=== PATIENT | male | born 1970 | race Caucasian/White ===

== ENCOUNTER → 2017-06-30 | Outpatient (CLI) | payer MEDICARE, OTHER ==
[~2017-06-30] MED LIST: ALLOPURINOL 10100 M1 PO; AMITRIPTYLINE H25 M2 PO; AMOXICILLIN 50500 MG PO; AUGMENTIN 875-1 EACH PO; CIALIS5 MG PO; CYMBALTA60 MG PO; DILAUDID 2 MG TA2 MG PO; DOCUSATE SODIU100 MG PO; FOLIC ACID0.8 MG PO; GLUCOPHAGE500 MG PO; GLUCOTROL5 MG PO; INDOMETHACIN 5050 M1; INVOKANA100 MG PO; JANUMET 50-1,01 EACH PO; LIDODERM1 EACH TRANSDERM; LYRICA 75 MG CA75 MG; MACRODANTIN100 MG PO; METFORMIN HCL500 MG PO; NEURONTIN 300300 M1 PO; NEURONTIN600 MG PO; NEXIUM 40 MG CA40 M1 PO; NEXIUM40 MG PO; PLAVIX 75 MG TA75 M1 PO; PRILOSEC 20 MG20 MG PO; VITAMIN B-1100 M1 PO; VITAMIN D1000 UNI1 PO; VITAMIN D3400 UNIT PO; VITAMIN D400 UNIT PO; XANAX 0.25 MG0.25 MG PO; XANAX 0.5 MG0.5 MG PO
[2017-06-30 09:54] VITALS: BP 122/87
[2017-06-30 09:58] VITALS: BP 122/87
== END ==
LOC: M.ULTRA 03-11 14:33 → M.INT 09:00
DX: I73.9 Peripheral vascular disease, unspecified (principal); I70.8 Atherosclerosis of other arteries; G47.33 Obstructive sleep apnea (adult) (pediatric); Z95.5 Presence of coronary angioplasty implant and graft

== ENCOUNTER → 2017-08-01 | Outpatient (CLI) | payer MEDICARE, OTHER ==
[~2017-08-01] VITALS: Ht 188 cm; Wt 104.5 kg
[2017-08-01 08:06] VITALS: BP 148/89
[2017-08-01 09:08] LABS: HEMATOCRIT 38.8 % (42.0-52.0); HEMOGLOBIN 13.1 gm/dL (14.0-18.0); MCH 29.2 pg (26.0-34.0); MCHC 33.8 g/dL (28.0-37.0); MCV 86.3 fL (80.0-100.0); MPV 7.2 fl. (7.2-11.1); RBC 4.5 mil/uL (4.50-6.00); RDW-CV 14.1 % (10.5-14.5); WBC 10.2 thou/uL (4.0-11.0)
[2017-08-01 09:14] LABS: CALCIUM 9.2 mg/dL (8.5-10.1); CREATININE 1.2 mg/dL (0.6-1.3); POTASSIUM 4.8 mmol/L (3.5-5.1)
[2017-08-01 09:18] LABS: APTT 27.6 Seconds (25.0-31.3); INR 1.1; PROTIME 10.7 Seconds (9.20-11.50)
== END | disposition home or self-care (01) ==
LOC: M.INT 07:37
PROVIDERS: Radiology Diagnostic Radiology
DX: I73.89 Other specified peripheral vascular diseases (principal); Z53.8 Procedure and treatment not carried out for other reasons; E11.69 Type 2 diabetes mellitus with other specified complication; G47.33 Obstructive sleep apnea (adult) (pediatric); Z85.51 Personal history of malignant neoplasm of bladder; Z79.01 Long term (current) use of anticoagulants; Z79.899 Other long term (current) drug therapy; Z87.891 Personal history of nicotine dependence

== ENCOUNTER 2017-08-03 08:02 | Inpatient (IN) | payer MEDICARE, OTHER ==
[~2017-08-03] VITALS: Ht 188 cm; Wt 104.3 kg
[2017-08-03] VITALS (10 sets, daily range): BP systolic 119–169; BP diastolic 66–91
[~2017-08-03 08:02] MED LIST changes: -AMOXICILLIN 50500 MG PO; -AUGMENTIN 875-1 EACH PO; -MACRODANTIN100 MG PO; -XANAX 0.25 MG0.25 MG PO
[2017-08-03] MEDS ORDERED: XANAX 0.25 MG0.25 MG PO (08:35)
[2017-08-03 17:05] LABS: HEMATOCRIT 36.5 % (42.0-52.0); HEMOGLOBIN 12.4 gm/dL (14.0-18.0); MCH 29.7 pg (26.0-34.0); MCHC 33.9 g/dL (28.0-37.0); MCV 87.5 fL (80.0-100.0); MPV 6.9 fl. (7.2-11.1); NUCLEATED RBCS 0 /100WBC; PLATELET COUNT* 302 thou/uL (150-400); RBC 4.17 mil/uL (4.50-6.00); RDW-CV 14.4 % (10.5-14.5); WBC 14.8 thou/uL (4.0-11.0)
[2017-08-03 17:09] LABS: CALCIUM 8.3 mg/dL (8.5-10.1); CREATININE 1.7 mg/dL (0.6-1.3)
[2017-08-03 17:14] LABS: ALBUMIN 3.3 g/dL (3.4-5.0); TOTAL BILIRUBIN 0.8 mg/dL (<0.1-1.0); TOTAL PROTEIN 6.7 g/dL (6.4-8.2)
[2017-08-03 17:41] LABS: ABSOLUTE LYMPHOCYTES 0.3 thou/uL (0.8-5.3); ABSOLUTE MONOCYTES 0.1 thou/uL (0.0-1.2); ABSOLUTE NEUTROPHILS 14.4 thou/uL (1.6-8.1); PLATELET ESTIMATE ADEQUATE
[2017-08-03 21:26] LABS: CALCIUM 8.2 mg/dL (8.5-10.1); CREATININE 1.7 mg/dL (0.6-1.3); POTASSIUM 5.2 mmol/L (3.5-5.1)
--- NOTE | 2017-08-03 21:56 | NUR ---
ASSUMED CARES OF PT AT 1640 FROM PACU. PT IN BED, BED IN LOW LOCKED POSITION, FALL PRECAUTIONS IN PLACE. CALL BUTTON AND PERSONAL ITEMS IN PT REACH. PT A&O X4, LCTAB, HRRR PER AUSCULTATION, VSS ON 2L O2 NC, AFEBRILE, PERRLA. SKIN INTACT WITH TWO CATHERIZATION SITES, LEFT GROIN, DRESSING IN PLACE, C/D/I. RIGHT MEDIAL ANKLE, CLEAR DRESSING, SMALL AMOUNT OF DRIED BLOOD DRAINAGE. VS TAKEN Q30 MINS X 2 HOURS. HOURLY CHECKS ON CATH SITES. GROIN SOFT TO PALPATATION, NO BRUISING. PT SUPINE, NO HIGHER THAN 30 DEG. IN BED, NO LEG MOVEMENT UNTIL 6 HOUR POST PROCEDURE TIME IS COMPLETED AT 2115. CONDOM MANZO IN PLACE, DARK FABIÁN URINE FLOWING. PT COOPERATIVE, PLEASANT. PORT FROM PAST CANCER TREATMENT VISABLE ON LEFT CHEST. O2 MONITORING UNLESS CPAP ON AT HS. ORDERS PER DR. MCCURDY TO RUN 1000 ML NS WO, FOLLOWED BY NS AT 150 ML/HR. REPORT TO TOXICOLOGIST FOR CONTINUED CARES. ADMISSION COMPLETED.
[2017-08-03 23:02] LABS: CALCIUM 8.1 mg/dL (8.5-10.1); CREATININE 1.7 mg/dL (0.6-1.3); POTASSIUM 5.1 mmol/L (3.5-5.1)
[2017-08-04 04:21] VITALS: BP 131/70
[2017-08-04 04:39] LABS: ABSOLUTE LYMPHOCYTES 1.1 thou/uL (0.8-5.3); ABSOLUTE MONOCYTES 0.7 thou/uL (0.0-1.2); ABSOLUTE NEUTROPHILS 12.2 thou/uL (1.6-8.1); BASOPHILS 0.2 %; EOSINOPHILS 0.1 %; HEMATOCRIT 34.1 % (42.0-52.0); HEMOGLOBIN 11.5 gm/dL (14.0-18.0); LYMPHOCYTES 8.1 %; MCH 29.5 pg (26.0-34.0); MCHC 33.7 g/dL (28.0-37.0); MCV 87.7 fL (80.0-100.0); MONOCYTES 4.8 %; MPV 7.2 fl. (7.2-11.1); NUCLEATED RBCS 0 /100WBC; PLATELET COUNT* 287 thou/uL (150-400); POLYS 86.8 %; RBC 3.89 mil/uL (4.50-6.00); RDW-CV 14.5 % (10.5-14.5)
[2017-08-04 05:01] LABS: CALCIUM 8.4 mg/dL (8.5-10.1); CREATININE 1.4 mg/dL (0.6-1.3); POTASSIUM 4.9 mmol/L (3.5-5.1)
--- NOTE | 2017-08-04 07:39 | NUR ---
PATIENT HAS SLEPT WELL THROUGHOUT THE NIGHT WITHOUT ANY ISSUES. PAIN WELL CONTROLLED. PAIN WELL CONTROLLED AND NO BLEEDING FROM PROCEDURE SITE. DRESSING IS C/D/I TO LEFT GROIN AND TRANSPARENT DRESSING TO RIGHT ANKLE INTACT WITH MINIMAL DRAINAGE. VSS ON RA. IV IN LEFT FOREARM-NS @ 100ML/HR AT THIS TIME. CONDOM MANZO TO DEPENDENT DRAINAGE WITH FABIÁN COLORED URINE OUTPUT. AT BEDSIDE. PATIENT UP WITH ASSIST X 1 TO THE BATHROOM, BUT SLIGHTLY UNSTEADY. PATIENT INSTRUCTED TO USE CALL LIGHT WHEN NEEDING ASSISTANCE. HOURLY ROUNDS MADE AND NURSING TO CONTINUE MONITORING.
[2017-08-04 07:45] VITALS: BP 107/66
--- NOTE | 2017-08-04 10:52 | EKG ---
[place] [address] ELECTROCARDIOGRAM REPORT Name: RODNEY AYON Room: [address] ADM IN .R.#: [id number] Admission: 08/03/17 Attend Phys: Romie Pike MD Discharge: Date of : 70 Report #: [id number] THIS REPORT FOR: //name// [facility] Test Date: 2017-08-04 Test Time: 09:54:56 Pat Name: RODNEY AYON Department: Room: [address] Gender: M Early Childhood Services Coordinator: : 1970 Requested By: Romie Pike Order Number: [id number] Reading MD: Harrison Bolton Measurements Intervals [place] Rate: 115 P: 7 VT: 155 QRS: 21 QRSD: 89 T: 60 QT: 304 QTc: 421 Interpretive Statements Sinus tachycardia Low voltage, extremity and precordial leads Abnormal R-wave progression, early transition Compared to ECG 03/22/2016 14:29:51 Low QRS voltage now present Sinus rhythm no longer present Electronically Signed On 08-04-2017 10:51:56 CDT by Harrison Bolton [email or web address] <ELECTRONICALLY SIGNED> By: Harrison Bolton MD, FACC 08/04/17 1051 0954 0954 Harrison Bolton MD, FAC /EPI
[2017-08-04 13:22] VITALS: BP 111/60
[2017-08-04] MEDS ORDERED: PLAVIX 75 MG TA75 M1 PO (15:20)
[2017-08-04 16:06] VITALS: BP 111/60
[2017-08-04 16:17] VITALS: BP 111/60
[2017-08-04 17:42] VITALS: BP 111/60
--- NOTE | 2017-08-04 17:43 | NUR ---
PATIENT LEFT UNIT AT 1740. ALERT AND ORIENTED X4. UP STAND BY ASSIST IN ROOM. IV DC'D. PAIN BEING MANAGED WITH PO PAIN MEDICATION. DENIES NAUSEA. ALL PERSONAL ITEMS LEFT WITH PATIENT. DISCHARGE INSTRUCTIONS, PRESCRIPTIONS, AND NEW MEDICATION INFORMATION SENT WITH PATIENT. VSS ON ROOM AIR. HOURLY ROUNDS HAVE BEEN MAINTAINED THROUGHOUT SHIFT. LEFT WITH VIA CAR.
--- NOTE | 2017-08-11 14:48 | EKG ---
[place] [address] ELECTROCARDIOGRAM REPORT Name: RODNEY AYON Room: [address]#: [id number] Admission: 08/03/17 Attend Phys: Romie Pike MD Discharge: 08/04/17 Date of : 70 Report #: [id number] THIS REPORT FOR: //name// [facility] Test Date: 2017-08-05 Test Time: 12:13:43 Pat Name: RODNEY AYON Department: Room: Gender: Awake Overnight Monitor: Leonie PEREZ : 1970 Requested By: Brea Villafana Order Number: [id number] MD: Measurements Intervals [place] Rate: 106 P: 5 WV: 162 QRS: -5 QRSD: 86 T: 62 QT: 312 QTc: 415 Interpretive Statements Sinus tachycardia Borderline low voltage, extremity leads Compared to ECG 08/04/2017 09:54:56 No significant changes [email or web address] By: 1402 1213 Talat De Oliveira MD, FACC /EPI
[2018-03-08] MEDS ORDERED: AMOXICILLIN 50500 MG PO (14:29)
== END 2017-08-04 17:40 | disposition home or self-care (01) | DRG 270 ==
LOC: M.INT 08:02 → M.ORTHSURG 15:37 → M.INT 15:56 → M.ORTHSURG 18:06
PROVIDERS: ADMIT Internal Medicine
PROC: 3E05317 Introduction of Other Thrombolytic into Peripheral Artery, Percutaneous Approach (ICD-10-PCS; principal; 2017-08-03)
PROC: 047M3Z1 Dilation of Right Popliteal Artery using Drug-Coated Balloon, Percutaneous Approach (ICD-10-PCS; principal; 2017-08-03)
PROC: 047K3Z1 Dilation of Right Femoral Artery using Drug-Coated Balloon, Percutaneous Approach (ICD-10-PCS; principal; 2017-08-03)
PROC: 04CK3ZZ Extirpation of Matter from Right Femoral Artery, Percutaneous Approach (ICD-10-PCS; principal; 2017-08-03)
DX: E11.51 Type 2 diabetes mellitus with diabetic peripheral angiopathy without gangrene (principal); N17.0 Acute kidney failure with tubular necrosis; J98.11 Atelectasis; E87.2 Acidosis; M62.82 Rhabdomyolysis; E11.40 Type 2 diabetes mellitus with diabetic neuropathy, unspecified; E87.5 Hyperkalemia; R00.0 Tachycardia, unspecified; N18.9 Chronic kidney disease, unspecified; E11.22 Type 2 diabetes mellitus with diabetic chronic kidney disease; G89.29 Other chronic pain; G47.33 Obstructive sleep apnea (adult) (pediatric); Z79.84 Long term (current) use of oral hypoglycemic drugs; Z79.899 Other long term (current) drug therapy; Z95.820 Peripheral vascular angioplasty status with implants and grafts; Z87.891 Personal history of nicotine dependence; Z85.51 Personal history of malignant neoplasm of bladder; Z91.041 Radiographic dye allergy status

== ENCOUNTER 2017-08-05 11:38 | Inpatient (IN) | payer MEDICARE, OTHER ==
[~2017-08-05] VITALS: Ht 188 cm; Wt 91.2 kg
[~2017-08-05 11:38] MED LIST changes: +XANAX 0.25 MG0.25 MG PO
[2017-08-05 12:01] VITALS: BP 155/90
[2017-08-05 12:19] LABS: URINE BILIRUBIN NEGATIVE (Negative); URINE BLOOD 2+ (Negative); URINE CLARITY SL CLOUDY; URINE COLOR STRAW; URINE GLUCOSE-RANDOM NEGATIVE (Negative); URINE KETONES NEGATIVE (Negative); URINE NITRITE-REFLEX NEGATIVE (Negative); URINE PROTEIN NEGATIVE (Negative); URINE SPECIFIC GRAVITY <= 1.005 (1.005-1.030); URINE UROBILINOGEN 0.2 E.U./dl (0.2-1.0)
[2017-08-05 12:20] LABS: URINE LEUKOCYTES-REFLEX 3+ (Negative)
[2017-08-05 12:20] LABS: HEMATOCRIT 33.6 % (42.0-52.0); HEMOGLOBIN 11.1 gm/dL (14.0-18.0); MCH 29.3 pg (26.0-34.0); MCV 88.6 fL (80.0-100.0); NUCLEATED RBCS 0 /100WBC; PLATELET COUNT* 251 thou/uL (150-400); RBC 3.79 mil/uL (4.50-6.00); RDW-CV 14.5 % (10.5-14.5); WBC 15.6 thou/uL (4.0-11.0)
[2017-08-05 12:24] LABS: ANION GAP 12 mmol/L (7-16); BUN 20 mg/dL (7-18); CALCIUM 9.4 mg/dL (8.5-10.1); CHLORIDE 102 mmol/L (98-107); CO2 23 mmol/L (21-32); CREATININE 1.5 mg/dL (0.6-1.3); GLUCOSE 293 mg/dL (70-99); POTASSIUM 4.1 mmol/L (3.5-5.1); SODIUM 137 mmol/L (136-145)
[2017-08-05 12:27] LABS: INR 1.1; PROTIME 10.7 Seconds (9.20-11.50)
[2017-08-05 12:28] LABS: SQUAMOUS 0-3 Few /LPF (0-3)
[2017-08-05 12:29] LABS: AMORPHOUS URATES Moderate /LPF (None Seen); BACTERIA-REFLEX 1-9 Few /HPF (None Seen); CASTS None Seen /LPF (None Seen); URINE RBC 0-2 Rare /HPF (0-2)
[2017-08-05 12:31] LABS: ALBUMIN 3.2 g/dL (3.4-5.0); ALKALINE PHOSPHATASE 105 U/L (46-116); SGOT 20 U/L (15-37); SGPT 25 U/L (30-65); TOTAL BILIRUBIN 0.7 mg/dL (<0.1-1.0); TOTAL PROTEIN 6.8 g/dL (6.4-8.2); TROPONIN-I LEVEL <0.06 ng/mL (<0.06)
[2017-08-05 12:40] LABS: ABSOLUTE EOSINOPHILS 0.6 thou/uL (0.0-0.7); ABSOLUTE LYMPHOCYTES 1.4 thou/uL (0.8-5.3); ABSOLUTE MONOCYTES 0.6 thou/uL (0.0-1.2); ABSOLUTE NEUTROPHILS 12.9 thou/uL (1.6-8.1); PLATELET ESTIMATE ADEQUATE
[2017-08-05 16:10] LABS: BE -2.8 mmol/L (-2 to +3); HCO3 19.4 mmol/L (22.0-26.0); PCO2 26.3 mmHg (35.0-45.0); PO2 88.7 mmHg (75.0-100.0); pH 7.485 (7.340-7.450)
[2017-08-05 16:33] VITALS: BP 142/86
[2017-08-05 17:04] VITALS: BP 158/98
--- NOTE | 2017-08-05 17:29 | NUR ---
PATIENT CAME TO THE FLOOR FROM THE ER IN STABLE CONDITION. VITAL SIGNS STABLE ON ROOM AIR, HEART RATE IS SLIGHTLY ELEVATED. PATIENT SAYS PAIN COMES AND GOES, FEELS BETTER AFTER HAVING A BOWEL MOVEMENT. UP AD ELENITA IN ROOM. ADMISSION ASSESSMENT AND EDUCATION DONE WITH QUESTIONS ANSWERED FOR PATIENT AND FAMILY. CALL LIGHT IS IN REACH, WILL CONTINUE TO MONITOR.
[2017-08-05 23:31] VITALS: BP 115/72
[2017-08-06 00:40] LABS: ABSOLUTE BASOPHILS 0.1 thou/uL (0.0-0.2); ABSOLUTE EOSINOPHILS 0.2 thou/uL (0.0-0.7); ABSOLUTE LYMPHOCYTES 2.3 thou/uL (0.8-5.3); ABSOLUTE MONOCYTES 0.8 thou/uL (0.0-1.2); ABSOLUTE NEUTROPHILS 7.5 thou/uL (1.6-8.1); BASOPHILS 0.7 %; EOSINOPHILS 1.9 %; HEMATOCRIT 29.4 % (42.0-52.0); HEMOGLOBIN 10.1 gm/dL (14.0-18.0); LYMPHOCYTES 20.9 %; MCHC 34.4 g/dL (28.0-37.0); MCV 87.1 fL (80.0-100.0); MONOCYTES 7.6 %; MPV 6.9 fl. (7.2-11.1); NUCLEATED RBCS 0 /100WBC; PLATELET COUNT* 216 thou/uL (150-400); POLYS 68.9 %; RBC 3.37 mil/uL (4.50-6.00); RDW-CV 14.3 % (10.5-14.5); WBC 10.9 thou/uL (4.0-11.0)
[2017-08-06 00:50] LABS: CALCIUM 8.9 mg/dL (8.5-10.1); CREATININE 1.3 mg/dL (0.6-1.3); POTASSIUM 3.6 mmol/L (3.5-5.1)
[2017-08-06 04:00] VITALS: BP 109/74
--- NOTE | 2017-08-06 06:03 | NUR ---
PATIENT SLEPT MOST OF THE NIGHT. IV FLUIDS AND ANTIBIOTICS WERE GIVEN ORDERED. PATIENT HAD NO COMPLAINTS OF PAIN. REMAINS AT BEDSIDE. WILL CONTINUE TO MONITOR.
[2017-08-06 07:50] VITALS: BP 156/83
--- NOTE | 2017-08-06 13:55 | NUR ---
P.T EVAL AND TREAT RECEIVED. UPON CHART REVIEW AND DISCUSSION WITH O.T., NSG, PT AND FAMILY, PT IS AT BASELINE FUNCTIONAL INDEPENDENT LEVEL WITHOUT ASSISTIVE DEVICE. NSG REPORTS PT HAS BEEN UP ON HIS OWN DURING THIS ADMISSION. NO SKILLED P.T. NEEDS IDENTIFIED AT THIS TIME.
--- NOTE | 2017-08-06 16:36 | NUR ---
PATIENT A&OX4, ROOM AIR, IV LEFT AC, FLUIDS INFUSSING. UP AD ELENITA, STEADY GAIT. C/O PAIN IN HANDS/GENERALIZED, REFUSSING PAIN MEDICATION AT THIS TIME, CONCERNS WITH GOING HOME. ORAL BS MEDICATION STARTED TODAY, BS BETTER CONTROLED. PATIENT ON HEART MONITOR, SINUS RHYTHM, SINUS TACHYCARDIA. NO OTHER CONCERNS AT THIS TIME. APPROPRAITE AND COOPORATIVE WITH CARE.
[2017-08-06 16:57] VITALS: BP 175/91
[2017-08-06 23:54] VITALS: BP 144/83
[2017-08-07 03:52] VITALS: BP 155/73
[2017-08-07 03:54] LABS: ABSOLUTE BASOPHILS 0.1 thou/uL (0.0-0.2); ABSOLUTE EOSINOPHILS 0.2 thou/uL (0.0-0.7); ABSOLUTE LYMPHOCYTES 2.1 thou/uL (0.8-5.3); ABSOLUTE MONOCYTES 0.7 thou/uL (0.0-1.2); ABSOLUTE NEUTROPHILS 7.6 thou/uL (1.6-8.1); BASOPHILS 0.6 %; EOSINOPHILS 2.1 %; HEMATOCRIT 28.8 % (42.0-52.0); HEMOGLOBIN 9.8 gm/dL (14.0-18.0); LYMPHOCYTES 19.8 %; MCH 29.4 pg (26.0-34.0); MCHC 33.9 g/dL (28.0-37.0); MCV 86.7 fL (80.0-100.0); MONOCYTES 6.2 %; MPV 7.2 fl. (7.2-11.1); NUCLEATED RBCS 0 /100WBC; PLATELET COUNT* 255 thou/uL (150-400); POLYS 71.3 %; RBC 3.32 mil/uL (4.50-6.00); RDW-CV 14.6 % (10.5-14.5); WBC 10.6 thou/uL (4.0-11.0)
[2017-08-07 04:10] LABS: CALCIUM 9.2 mg/dL (8.5-10.1); CREATININE 1.2 mg/dL (0.6-1.3); POTASSIUM 3.3 mmol/L (3.5-5.1)
--- NOTE | 2017-08-07 06:11 | NUR ---
PATIENT SLEPT MOST OF THE NIGHT. IV INFILTRATED PATIENT DID NOT WANT IV RESTARTED SINCE HE IS POSSIBLY GOING HOME TODAY. PATIENT WAS GIVEN MIRALAX AND COLACE FOR CONSTIPATION PROBLEMS AGAIN. WILL CONTINUE TO MONITOR.
[2017-08-07 07:55] VITALS: BP 147/90
[2017-08-07] MEDS ORDERED: AUGMENTIN 875-1 EACH PO (11:25)
[2017-08-07 11:30] VITALS: BP 147/90
--- NOTE | 2017-08-07 11:53 | H ---
[place] [address] HISTORY AND PHYSICAL Name: RODNEY AYON Room: [address] IN .R.#: [id number] Admission: 08/05/17 Attend Phys: Romie Pike MD Discharge: Date of : 70 Report #: [id number] THIS REPORT FOR: //name// CC: Romie Cr MD DATE OF SERVICE: 08/05/2017 CHIEF COMPLAINT OR REASON FOR ADMISSION: Abdominal discomfort, pneumonia. HISTORY OF PRESENT ILLNESS: This is a 47-year-old gentleman who is known to me from his previous admission, he was just discharged. We had Interventional Radiology guided revascularization procedure. He comes back with increasing abdominal discomfort, cough with greenish dark phlegm. He after discharge, mentions that he was doing well, but he started noticing abdominal cramps and also coughing with phlegm. He had a prolonged revascularization procedure following which he did have metabolic acidosis. He was given fluids and hydration and he was stabilized and he was able to be discharged. He does admit to 6 pack drinking beer on a regular basis. It is unclear whether he drank after going home. Here, he has had abdominal and pelvis CT scan done, which shows a bladder distention and hydronephrosis. He does have a history of bladder cancer and bladder resection and neobladder previously. He does have some chronic hydronephrosis. Labs for him, creatinine is 1.5, blood glucose is elevated 293, hemoglobin is 11, hematocrit 33, WBC count is elevated to 15, seen in the Emergency Department. He denies any travel history or any other complaints. He does have chronic pain and takes narcotics at home too, no other complaints. PAST MEDICAL HISTORY: For this patient is significant for: 1. Bladder cancer with bladder resection and neobladder. 2. Diabetes mellitus type 2. 3. Neuropathy. 4. Spinal stenosis. 5. Severe peripheral vascular disease, recent revascularization. 6. Sleep apnea. 7. Incontinence. CURRENT MEDICATIONS: List include gabapentin, omeprazole, folic acid, thiamine, glipizide, hydromorphone, metformin, Cymbalta, vitamin D, allopurinol, amitriptyline, cholecalciferol, and Plavix. ALLERGIES: For this patient, iodinated contrast. REVIEW OF SYSTEMS: [place] [address] HISTORY AND PHYSICAL Name: RODNEY AYON Arsalan Room: [address]#: [id number] Admission: 08/05/17 Attend Phys: Romie Pike MD Discharge: Date of : 70 Report #: [id number] HEAD: No complaints of any headache. EYES: No visual disturbance. EARS: No hearing difficulty. NOSE: No nasal discharge. NECK: No neck pain or neck swelling. THROAT: No soreness in throat. LUNGS: Cough, phlegm. CARDIOVASCULAR: No chest pain, some dyspnea. GASTROINTESTINAL: Abdominal discomfort. GENITOURINARY: Incontinence. He has had bladder reconstruction. NEUROLOGIC: Generally feels weak. HEMATOLOGIC: No complaints of easy bruising or easy bleeding. MUSCULOSKELETAL: Lower extremity pain, recent revascularization. SKIN: No complaints of skin lesions or skin rashes. PSYCHIATRIC: No complaints of psychiatric issue. FAMILY MEDICAL HISTORY: Negative for any malignancy or heart disease. SOCIAL HISTORY: Negative for current smoking. He has had history of smoking previously. The patient admits to drinking 6 pack beers. Denies recreational drug use. Does take chronic narcotics for pain. PHYSICAL EXAMINATION: GENERAL: This is a 47-year-old gentleman seen in the emergency department, he is awake and alert, mild to moderate distress. VITAL SIGNS: Reviewed. Temperature is afebrile, pulse is 107, respiratory rate is 19, blood pressure is 150/90. HEENT: Atraumatic, normocephalic. EYES: Conjunctivae are clear. Pupils are reactive. NOSE: There is no nasal discharge. SKIN: Warm and dry. EXTREMITIES: No cyanosis, clubbing or pedal edema noticed. NECK: Supple. LUNGS: Diminished. CARDIOVASCULAR: S1, S2 appears to be regular. ABDOMEN: Soft, nontender, no organomegaly appreciated. However, lower quadrant tenderness is present. Bowel sounds active. GENITOURINARY: Deferred. RECTAL: Deferred. BACK: Limited. GAIT: Not evaluated. Extraocular movements are intact. NEUROLOGICAL: Alert and conversational, able to move all extremities. Grossly nonfocal neurological examination. VASCULAR: Upper and lower extremity pulses present in lower [place] [address] HISTORY AND PHYSICAL Name: RODNEY AYON Arsalan Room: [address] IN [facility]#: [id number] Admission: 08/05/17 Attend Phys: Romie Pike MD Discharge: Date of : 70 Report #: [id number] LABORATORY DATA: For this patient, sodium 137, potassium 4.1, BUN 20, creatinine 1.5, blood glucose 293. Hemoglobin 11, hematocrit 33, WBC count is 15.6, platelet count is 251. Urinalysis suggests possible urinary tract infection. ASSESSMENT AND PLAN: This is a 47-year-old gentleman with recent revascularization procedure presented with abdominal discomfort, cough and phlegm, was also having incontinence of urine. He has had bladder cancer. The new bladder is noticed to have urinary tract infection and pneumonia. He does admit to drinking concern for aspiration pneumonia. IMPRESSION: 1. Pneumonia, possible aspiration. 2. Urinary tract infection. 3. History of bladder cancer with neobladder reconstruction previously. 4. Severe peripheral vascular disease and recent severe peripheral vascular disease with recent revascularization. 5. History of smoking. 6. Diabetes mellitus type 2 on Hyperglycemia. 7. Anxiety, depression. PLAN: To admit this patient, gentle hydration, antibiotics, follow cultures. Incentive spirometry, analgesics, DVT prophylaxis. Follow this patient closely and clinically. For further plan and management, please also see orders and consults. This patient's prognosis is guarded. Discussed with patient and family by the bedside. <ELECTRONICALLY SIGNED> By: Romie Pike MD 08/07/17 1153 1555 1745Adhaval Pike MD /DARREL
--- NOTE | 2017-08-07 12:03 | NUR ---
PATIENT A&OX4, ROOM AIR, NO IV ACCESS. UP AD ELENITA, STEADY GIAT. LOW GRADE FEVER OF 100.2 THIS MORNING. TYLENOL GIVEN FEVER NOW AT 97.9. NO OTHER CONCERNS AT THIS TIME. REVIEWED DISCHARGE PAPERWORK WITH PATIENT WHILE AT BEDSIDE. PRESCRIPTION GIVEN. VERBALIZES UNDERSTANDING, NO FURTHER QUESTIONS. ALL BELONGINGS TAKEN WITH PATIENT, NOTHING LEFT BEHIND. APPROPRIATE AND COOPORATIVE WITH CARE. LEFT FLOOR AT 1155 VIA W/C WITH NURSING STAFF.
[2018-03-08] MEDS ORDERED: AMOXICILLIN 50500 MG PO (14:29)
== END 2017-08-07 11:55 | disposition home or self-care (01) | DRG 177 ==
LOC: M.ERS 11:38 → M.TBA-ER 15:44 → M.3W 15:44
PROVIDERS: Nurse Practitioner Family; Personal Emergency Response Attendant; ADMIT Internal Medicine
DX: J69.0 Pneumonitis due to inhalation of food and vomit (principal); R65.11 Systemic inflammatory response syndrome (SIRS) of non-infectious origin with acute organ dysfunction; N39.0 Urinary tract infection, site not specified; N17.9 Acute kidney failure, unspecified; E11.40 Type 2 diabetes mellitus with diabetic neuropathy, unspecified; K59.00 Constipation, unspecified; N18.3 Chronic kidney disease, stage 3 (moderate); E11.51 Type 2 diabetes mellitus with diabetic peripheral angiopathy without gangrene; E11.65 Type 2 diabetes mellitus with hyperglycemia; F32.9 Major depressive disorder, single episode, unspecified; F41.9 Anxiety disorder, unspecified; Z95.820 Peripheral vascular angioplasty status with implants and grafts; Z85.51 Personal history of malignant neoplasm of bladder; Z87.891 Personal history of nicotine dependence; Z79.02 Long term (current) use of antithrombotics/antiplatelets; Z79.84 Long term (current) use of oral hypoglycemic drugs; Z79.899 Other long term (current) drug therapy; Z91.041 Radiographic dye allergy status

== ENCOUNTER → 2017-09-12 | Outpatient (CLI) | payer MEDICARE, OTHER ==
[~2017-09-12] MED LIST changes: +AMOXICILLIN 50500 MG PO; +AUGMENTIN 875-1 EACH PO; +MACRODANTIN100 MG PO
[2017-09-12 10:55] VITALS: BP 165/89
== END ==
LOC: M.ULTRA 09-09 09:00 → M.INT 09-09 10:00 → M.ULTRA 09:00
DX: I73.9 Peripheral vascular disease, unspecified (principal); E11.40 Type 2 diabetes mellitus with diabetic neuropathy, unspecified

== ENCOUNTER 2018-02-26 19:53 | Inpatient (IN) | payer MEDICARE, OTHER ==
[~2018-02-26] VITALS: Ht 188 cm; Wt 93.0 kg
[~2018-02-26 19:53] MED LIST changes: -AMOXICILLIN 50500 MG PO; -MACRODANTIN100 MG PO
[2018-02-26 19:58] VITALS: BP 126/93
[2018-02-26] MEDS ORDERED: MACRODANTIN100 MG PO (20:05)
[2018-02-26 20:32] LABS: ABSOLUTE BASOPHILS 0.2 thou/uL (0.0-0.2); ABSOLUTE EOSINOPHILS 0.2 thou/uL (0.0-0.7); ABSOLUTE LYMPHOCYTES 2.3 thou/uL (0.8-5.3); ABSOLUTE MONOCYTES 0.9 thou/uL (0.0-1.2); ABSOLUTE NEUTROPHILS 11.8 thou/uL (1.6-8.1); BASOPHILS 1.2 %; EOSINOPHILS 1.2 %; HEMATOCRIT 40.4 % (42.0-52.0); HEMOGLOBIN 13.6 gm/dL (14.0-18.0); LYMPHOCYTES 14.9 %; MCH 29.5 pg (26.0-34.0); MCHC 33.7 g/dL (28.0-37.0); MCV 87.5 fL (80.0-100.0); MONOCYTES 5.8 %; NUCLEATED RBCS 0 /100WBC; PLATELET COUNT* 456 thou/uL (150-400); POLYS 76.9 %; RBC 4.62 mil/uL (4.50-6.00); RDW-CV 13.4 % (10.5-14.5); WBC 15.3 thou/uL (4.0-11.0)
[2018-02-26 20:39] LABS: CALCIUM 10.2 mg/dL (8.5-10.1); CREATININE 1.3 mg/dL (0.6-1.3); POTASSIUM 3.7 mmol/L (3.5-5.1)
[2018-02-26 20:43] LABS: ALBUMIN 3.5 g/dL (3.4-5.0); TOTAL BILIRUBIN 0.4 mg/dL (<0.1-1.0); TOTAL PROTEIN 7.8 g/dL (6.4-8.2)
[2018-02-26 21:13] LABS: TROPONIN-I LEVEL <0.06 ng/mL (<0.06)
[2018-02-26 22:10] LABS: URINE BILIRUBIN NEGATIVE (Negative); URINE BLOOD 3+ (Negative); URINE CLARITY CLEAR; URINE COLOR YELLOW; URINE GLUCOSE-RANDOM NEGATIVE (Negative); URINE KETONES NEGATIVE (Negative); URINE NITRITE-REFLEX NEGATIVE (Negative); URINE PROTEIN 1+ (Negative); URINE SPECIFIC GRAVITY 1.015 (1.005-1.030); URINE UROBILINOGEN 0.2 E.U./dl (0.2-1.0)
[2018-02-26 22:14] LABS: URINE LEUKOCYTES-REFLEX 3+ (Negative)
[2018-02-26 22:17] LABS: BACTERIA-REFLEX 1-9 Few /HPF (None Seen); SQUAMOUS 0-3 Few /LPF (0-3); URINE RBC >20 Many /HPF (0-2)
[2018-02-26 22:18] LABS: CASTS None Seen /LPF (None Seen); CRYSTALS None Seen /LPF (None Seen)
[2018-02-27] VITALS (7 sets, daily range): BP systolic 117–160; BP diastolic 57–87
[2018-02-27 11:38] LABS: ABSOLUTE BASOPHILS 0.1 thou/uL (0.0-0.2); ABSOLUTE EOSINOPHILS 0.2 thou/uL (0.0-0.7); ABSOLUTE LYMPHOCYTES 2.8 thou/uL (0.8-5.3); ABSOLUTE MONOCYTES 0.8 thou/uL (0.0-1.2); ABSOLUTE NEUTROPHILS 9.2 thou/uL (1.6-8.1); BASOPHILS 0.7 %; EOSINOPHILS 1.4 %; HEMATOCRIT 37.5 % (42.0-52.0); HEMOGLOBIN 12.5 gm/dL (14.0-18.0); LYMPHOCYTES 21.2 %; MCH 29.6 pg (26.0-34.0); MCHC 33.4 g/dL (28.0-37.0); MCV 88.7 fL (80.0-100.0); MONOCYTES 6.1 %; MPV 7.4 fl. (7.2-11.1); NUCLEATED RBCS 0 /100WBC; PLATELET COUNT* 391 thou/uL (150-400); POLYS 70.6 %; RBC 4.23 mil/uL (4.50-6.00); RDW-CV 13.4 % (10.5-14.5)
[2018-02-27 11:46] LABS: CALCIUM 9.7 mg/dL (8.5-10.1); CREATININE 1.2 mg/dL (0.6-1.3); POTASSIUM 4.4 mmol/L (3.5-5.1); TOTAL BILIRUBIN 0.3 mg/dL (<0.1-1.0); TOTAL PROTEIN 6.2 g/dL (6.4-8.2)
[2018-02-28 01:00] VITALS: BP 157/85
[2018-02-28 04:00] VITALS: BP 170/97
[2018-02-28 05:45] LABS: HEMATOCRIT 36.3 % (42.0-52.0); HEMOGLOBIN 12.2 gm/dL (14.0-18.0); MCH 29.4 pg (26.0-34.0); MCHC 33.5 g/dL (28.0-37.0); MCV 87.6 fL (80.0-100.0); MPV 7.3 fl. (7.2-11.1); RBC 4.14 mil/uL (4.50-6.00); RDW-CV 13.3 % (10.5-14.5); WBC 13.3 thou/uL (4.0-11.0)
[2018-02-28 06:10] LABS: CALCIUM 9.5 mg/dL (8.5-10.1); POTASSIUM 3.6 mmol/L (3.5-5.1); TOTAL BILIRUBIN 0.2 mg/dL (<0.1-1.0); TOTAL PROTEIN 6.2 g/dL (6.4-8.2)
[2018-02-28 08:00] VITALS: BP 139/90
[2018-02-28 12:26] VITALS: BP 154/84
--- NOTE | 2018-02-28 16:58 | EKG ---
[place] [address] ELECTROCARDIOGRAM REPORT Name: RODNEY AYON Room: [address] ADM IN M.R.#: [id number] Admission: 02/26/18 Attend Phys: Mary Fraser MD Discharge: Date of : 70 Report #: [id number] THIS REPORT FOR: //name// [facility] ED Test Date: 2018-02-26 Test Time: 21:11:52 Pat Name: RODNEY AYON Department: Room: [facility] Gender: M Doctor Of Radiology: JALIL : 1970 Requested By: Galina Joy Order Number: [id number] MD: Handy Batista Measurements Intervals [place] Rate: 95 P: -27 MS: 148 QRS: -1 QRSD: 92 T: 61 QT: 337 QTc: 424 Interpretive Statements Sinus rhythm Compared to ECG 08/05/2017 12:13:43 Sinus tachycardia no longer present Electronically Signed On 02-28-2018 16:58:43 CDT by Handy Batista [email or web address] <ELECTRONICALLY SIGNED> By: Handy Batista MD, [facility] 02/28/18 1658 10 10 Handy Batista MD, FACC /EPI
[2018-02-28 17:07] VITALS: BP 165/97
[2018-02-28 20:00] VITALS: BP 170/91
[2018-03-01] VITALS (8 sets, daily range): BP systolic 139–172; BP diastolic 81–96
[2018-03-02] VITALS: BP 155/87
[2018-03-02 10:08] VITALS: BP 155/103
--- NOTE | 2018-03-02 12:35 | CON ---
[address] [address] CONSULTATION Name: RODNEY AYON Room: [address] IN M.R.#: [id number] Admission: 02/26/18 Attend Phys: Mary Fraser MD Discharge: Date of : 70 Report #: [id number] THIS REPORT FOR: //name// CC: Talat Fraser DATE OF SERVICE: 03/01/2018 INFECTIOUS DISEASE CONSULTATION ATTENDING PHYSICIAN: Dr. Fraser. REASON FOR EVALUATION: Pyelonephritis in the setting of recurrent urinary tract infections. HISTORY OF PRESENT ILLNESS: Chart reviewed, the patient examined. This is a 47-year-old man with history of bladder cancer and also diabetes mellitus, who had previous cystectomy and neobladder, who has had problem with recurrent urinary tract infections and has been on chronic suppressive therapy with Macrodantin for roughly a month. He had developed some chills, fevers, mildly encephalopathic. The patient had some nausea with emesis and generalized myalgias or arthralgias. This occurred about 5 days prior to the day of admission. He underwent urinalysis which showed pyuria. Urine culture now with growth of streptococcal species. He was empirically started on meropenem. Clinically, he has improved over the course of the last 48-72 hours. He denies any pulmonary or gastrointestinal-related complaints. His appetite has been adequate. ALLERGIES: IODINE. CURRENT MEDICATIONS: Include atorvastatin, insulin, Merrem, pantoprazole, duloxetine, gabapentin, allopurinol, cholecalciferol and metformin. PAST MEDICAL HISTORY: Diabetes mellitus, history of bladder cancer with cystectomy in 2016 and neobladder. He has peripheral neuropathy, has peripheral vascular disease with previous stenting of the lower extremities, obstructive sleep apnea and fibromyalgia. SOCIAL HISTORY: He smokes tobacco on a daily basis. Regular ethanol use. FAMILY HISTORY: Noncontributory. REVIEW OF SYSTEMS: As above. PHYSICAL EXAMINATION: GENERAL: He is pleasant, alert, cooperative, appropriate, [place] [address] CONSULTATION Name: GABORODNEY JAYDA Room: [address] IN [facility].#: [id number] Admission: 02/26/18 Attend Phys: Mary Fraser MD Discharge: Date of : 70 Report #: [id number] chronically ill, mildly undernourished. VITAL SIGNS: Temperature 97.3, pulse 96, respirations 18 and blood pressure is 160/93. SKIN: Warm, dry. No rashes. HEENT: Unremarkable. NECK: Supple. LUNGS: Generally clear breath sounds. HEART: Regular. Borderline tachycardic. I do not appreciate a murmur. ABDOMEN: Soft. It is mildly distended. There are no peritoneal signs. GENITOURINARY: Deferred. RECTAL: Deferred. LABORATORY DATA: Urine culture described above. Blood cultures sterile thus far. CBC from 02/28/2018, white count of 13.3, H and H 12.2 and 36.3 and platelets 376,000. Electrolytes: Sodium 142, potassium 3.6, chloride 109, bicarbonate is 22, BUN and creatinine 12 and 1.0 and glucose of 108. Albumin 3.0. Total protein 6.2. Estimated GFR of 80. Liver function tests unremarkable. Lactic acid initially peaked to 2.8, repeat was 1.4. CT of the pelvis showed left-sided hydronephrosis with left renal enlargement and perinephric stranding. ASSESSMENT: Pyelonephritis. PLAN: We will continue parenteral therapy. Await results of the culture. We are somewhat concerned about Enterococcus. We will dose with vancomycin; over the next 24 hours, hopefully, we will have our answer. Adjust therapy as needed. <ELECTRONICALLY SIGNED> By: Gurvinder Mora MD 03/02/18 1235 1633 0018Jomain Mora MD /nt
[2018-03-02 17:09] VITALS: BP 139/84
[2018-03-08] MEDS ORDERED: AMOXICILLIN 50500 MG PO (14:29)
== END 2018-03-02 18:42 | disposition home or self-care (01) | DRG 872 ==
LOC: M.ERS 19:53 → M.TBA-ER 23:01 → M.2W 23:01
PROVIDERS: Internal Medicine; Nurse Practitioner Family; ADMIT Internal Medicine
DX: A41.9 Sepsis, unspecified organism (principal); N10 Acute pyelonephritis; N13.30 Unspecified hydronephrosis; E11.42 Type 2 diabetes mellitus with diabetic polyneuropathy; E11.51 Type 2 diabetes mellitus with diabetic peripheral angiopathy without gangrene; G47.33 Obstructive sleep apnea (adult) (pediatric); F17.210 Nicotine dependence, cigarettes, uncomplicated; Z85.51 Personal history of malignant neoplasm of bladder; Z95.820 Peripheral vascular angioplasty status with implants and grafts; Z91.041 Radiographic dye allergy status; Z79.899 Other long term (current) drug therapy

== ENCOUNTER → 2018-03-08 | Outpatient (CLI) | payer MEDICARE, OTHER ==
[~2018-03-08] VITALS: Ht 188 cm; Wt 91.6 kg
[~2018-03-08] MED LIST changes: +AMOXICILLIN 50500 MG PO; +MACRODANTIN100 MG PO
[2018-03-08 14:18] VITALS: BP 140/99
== END ==
LOC: M.ULTRA 12:48
DX: I73.9 Peripheral vascular disease, unspecified (principal); R31.9 Hematuria, unspecified

== ENCOUNTER 2018-07-18 15:33 | Inpatient (IN) | payer MEDICARE, OTHER ==
[~2018-07-18] VITALS: Ht 188 cm; Wt 98.4 kg
--- NOTE | ~2018-07-18 | CON ---
[address] [address] CONSULTATION Name: RODNEY AYON Room: [address] IN M.R.#: [id number] Admission: 07/18/18 Attend Phys: Jennifer Ellis Discharge: Date of : 70 Report #: [id number] THIS REPORT FOR: //name// CC: Talat Johnson DATE OF SERVICE: 07/18/2018 PRIMARY CARE PHYSICIAN: Talat Marroquin MD. CHIEF COMPLAINT: Fatigue, shortness of breath. HISTORY OF PRESENT ILLNESS: The patient is a 48-year-old man who was referred because of an abnormal ECG and shortness of breath, fatigue over the last one month. He presented with ECG demonstrating Q-waves in the inferior leads and has a story compatible with unstable angina. He has been short of breath and tired over the last several days. He has numerous cardiovascular risk factors including active smoking, peripheral vascular disease. He denies prolonged chest pain or pressure. He has no complaints of palpitations or heart racing. No syncope or presyncope. He has no documented history of heart disease, but has a history of peripheral vascular disease and diabetes mellitus with complications. PAST MEDICAL HISTORY: Significant for PAD, status post CLIENT SERVICES SPECIALIST of his right lower extremity with stenting per Vascular Surgery. He has diabetes mellitus with complications of neuropathy. He has hyperlipidemia. He has hypertension. HOME MEDICATIONS: Include the following: Allopurinol, alprazolam p.r.n., amitriptyline 50 mg daily, Plavix 75 mg daily, Cymbalta 60 mg daily, folic acid, Glucotrol 5 mg daily, hydromorphone p.r.n., metformin 1 g b.i.d., omeprazole 20 mg daily. ALLERGIES: HE HAS ALLERGIES TO RED DYE, but not contrast. SOCIAL HISTORY: He is a one-half pack per day smoker. FAMILY HISTORY: Positive for heart disease. Father had bypass surgery. REVIEW OF SYSTEMS: GASTROINTESTINAL: No nausea, vomiting or hematemesis. GENITOURINARY: No dysuria, hematuria. He has recovering bladder [place] [address] CONSULTATION Name: RODNEY AYON Room: [address]#: [id number] Admission: 07/18/18 Attend Phys: Jennifer Ellis Discharge: Date of : 70 Report #: [id number] still has a port in his left forearm. In the past, he has had urinary tract infections. HEMATOLOGIC: No anemia or bleeding disorders. CARDIOVASCULAR: No chest pain. Positive shortness of breath, no orthopnea, no PND. Positive fatigue. CONSTITUTIONAL: Denies fevers or chills. OBJECTIVE: VITAL SIGNS: Blood pressure 162/100, pulse is 100, weight is 211 pounds. GENERAL: This is a middle-aged male. He is in mild distress. HEENT: Unremarkable. NECK: Supple. No jugular venous distention. CARDIOVASCULAR: Regular. I cannot hear a murmur or S3. LUNGS: Clear to auscultation bilaterally. ABDOMEN: Soft, nontender, nondistended. EXTREMITIES: No peripheral edema. Femoral pulses are intact bilaterally. Dorsalis pedis pulses are not palpable. NEUROLOGIC: No focal deficits. LABORATORY DATA: Electrocardiogram shows a sinus rhythm. There is a subtle Q-wave in lead 3 and aVF with only ST elevation in lead 2 only, but there are no reciprocal changes. There is overall lower voltage, but his heart rate is 99. He is in a sinus rhythm. IMPRESSION: 1. Unstable angina. Given his risk factor profile and presentation with increasing fatigue and shortness of breath and being a diabetic, I think that his atypical presentation is that of angina. 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 2. Diabetes mellitus. 3. Peripheral vascular disease. 4. Tobacco abuse. By: [id number] 0032Harrison Bolton MD, FACC /nt
[~2018-07-18 15:33] MED LIST changes: -ATORVASTATIN CA40 MG PO
[2018-07-18 15:45] VITALS: BP 147/100
[2018-07-18 17:01] LABS: ABSOLUTE BASOPHILS 0.1 thou/uL (0.0-0.2); ABSOLUTE EOSINOPHILS 0.2 thou/uL (0.0-0.7); ABSOLUTE LYMPHOCYTES 2.9 thou/uL (0.8-5.3); ABSOLUTE MONOCYTES 0.8 thou/uL (0.0-1.2); ABSOLUTE NEUTROPHILS 9.2 thou/uL (1.6-8.1); BASOPHILS 0.5 %; EOSINOPHILS 1.7 %; HEMATOCRIT 37.8 % (42.0-52.0); HEMOGLOBIN 12.9 gm/dL (14.0-18.0); MCH 29.9 pg (26.0-34.0); MCHC 34.2 g/dL (28.0-37.0); MCV 87.4 fL (80.0-100.0); MONOCYTES 5.8 %; MPV 6.9 fl. (7.2-11.1); NUCLEATED RBCS 0 /100WBC; PLATELET COUNT* 297 thou/uL (150-400); RBC 4.32 mil/uL (4.50-6.00); RDW-CV 15.4 % (10.5-14.5); WBC 13.2 thou/uL (4.0-11.0)
[2018-07-18 17:13] LABS: APTT 28.7 Seconds (25.0-31.3); PROTIME 10.3 Seconds (9.20-11.50)
[2018-07-18 17:16] LABS: ANION GAP 11 mmol/L (7-16); BUN 19 mg/dL (7-18); CALCIUM 10.2 mg/dL (8.5-10.1); CHLORIDE 104 mmol/L (98-107); CO2 22 mmol/L (21-32); CREATININE 1.4 mg/dL (0.6-1.3); GLUCOSE 121 mg/dL (70-99); POTASSIUM 3.8 mmol/L (3.5-5.1); SODIUM 137 mmol/L (136-145); TROPONIN-I LEVEL <0.06 ng/mL (<0.06)
[2018-07-18 17:28] LABS: ALBUMIN 3.9 g/dL (3.4-5.0); ALKALINE PHOSPHATASE 148 U/L (46-116); CK-MB MASS 2.3 ng/mL (<0.5-3.6); LIPASE 174 U/L (73-393); MAGNESIUM 1.1 mg/dL (1.8-2.4); NT-PRO BRAIN NAT PEPTIDE 10 pg/mL (<300); SGOT 12 U/L (15-37); SGPT 23 U/L (30-65); TOTAL BILIRUBIN 0.3 mg/dL (<0.1-1.0); TOTAL PROTEIN 7.4 g/dL (6.4-8.2)
[2018-07-18 17:45] LABS: URINE BILIRUBIN NEGATIVE (Negative); URINE BLOOD 1+ (Negative); URINE CLARITY TURBID; URINE COLOR YELLOW; URINE GLUCOSE-RANDOM NEGATIVE (Negative); URINE KETONES NEGATIVE (Negative); URINE NITRITE-REFLEX NEGATIVE (Negative); URINE PROTEIN TRACE (Negative); URINE UROBILINOGEN 0.2 E.U./dl (0.2-1.0)
[2018-07-18 17:46] LABS: URINE LEUKOCYTES-REFLEX 3+ (Negative)
[2018-07-18 17:55] LABS: URINE WBC-REFLEX >25 Many /HPF (0-5)
[2018-07-18 17:58] LABS: CASTS None Seen /LPF (None Seen)
[2018-07-18 17:59] LABS: SQUAMOUS 0-3 Few /LPF (0-3)
[2018-07-18 18:00] LABS: AMORPHOUS URATES Moderate /LPF (None Seen); BACTERIA-REFLEX 1-9 Few /HPF (None Seen); URINE RBC 3-10 Few /HPF (0-2)
[2018-07-18 18:01] LABS: MUCUS None Seen strn/LPF (None Seen)
[2018-07-18 19:15] VITALS: BP 141/92
[2018-07-19] VITALS (12 sets, daily range): BP systolic 113–140; BP diastolic 69–90
[2018-07-19 09:53] LABS: CHOLESTEROL 196 mg/dL (<200); HDL CHOLESTEROL 35 mg/dL (>40); LDL CHOLESTEROL 108 mg/dL (<100); TC:HDL 5.6 Ratio (Not establshd); TRIGLYCERIDE 267 mg/dL (<150); VLDL 53 mg/dL (<40)
[2018-07-19 09:54] LABS: SERUM ASSESSMENT Clear
[2018-07-19] MEDS ORDERED: ATORVASTATIN CA40 MG PO ×2 (15:24)
--- NOTE | 2018-07-19 16:02 | EKG ---
[place] [address] ELECTROCARDIOGRAM REPORT Name: RODNEY AYON Room: [address] ADM IN .R.#: [id number] Admission: 07/18/18 Attend Phys: Jennifer Ellis Discharge: Date of : 70 Report #: [id number] THIS REPORT FOR: //name// [facility] Test Date: 2018-07-18 Test Time: 15:40:56 Pat Name: RODNEY AYON Department: Room: [facility] Gender: M Portable Pinch Riveter: TP : 1970 Requested By: Johny Adamson Order Number: [id number] MD: Handy Batista Measurements Intervals [place] Rate: 86 P: -12 [place]: 162 QRS: -16 QRSD: 94 T: 65 QT: 361 QTc: 432 Interpretive Statements Sinus rhythm Borderline left axis deviation possible inferior scar Low voltage, precordial leads ST elev, probable normal early repol pattern Baseline wander in lead(s) V6 Compared to ECG 02/26/2018 21:11:52 Low QRS voltage now present ST (T wave) deviation now present Electronically Signed On 07-19-2018 16:02:45 IMMIGRATION PATROL INSPECTOR by Handy Batista [email or web address] <ELECTRONICALLY SIGNED> By: Handy Batista MD, [facility] 07/19/18 1602 1540 1540 Handy Batista MD, [facility] /EPI
--- NOTE | 2018-07-22 14:39 | CARD ---
[address] [address] CARDIAC CATH REPORT Name: RODNEY AYON Room: 210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 The right wrist was infiltrated with 2% Lidocaine subcutaneous anesthesia. A Slender Glidesheath sheath was inserted into the right radial artery. Coronary angiography was performed using coronary diagnostic catheters. The right coronary system was accessed and visualized with a Diagnostic 6Fr AR MOD catheter. The left coronary system was accessed and visualized with a Diagnostic 6Fr Radial Tig catheter. The left ventricle was accessed and visualized with a Diagnostic 6Fr angled pigtail catheter. Left ventriculogram was performed in RICHARDSON projection. Hemostasis was obtained with manual pressure following sheath removal without any complications. The patient tolerated the procedure well and there were no complications associated with the procedure. Intra[place] [address] CARDIAC CATH REPORT Name: RODNEY AYON Room: [address]#: [id number] Admission: 07/18/18 Attend Phys: Jennifer Ellis Discharge: 07/19/18 Date of : 70 Report #: [id number] Sedation start time: 932 Case end Time: 1005 Fentanyl 50 mcg Versed 2 mg Fluoro Time: 13.3 minutes Dose: DAP [id number] cGycm2 114 mGy Contrast Type and Amount: Visipaque 185 ml Coronary Angiography The patient's coronary anatomy is right dominant. Diagnostic Cath Left Main 0 percent narrowing LAD Percent proximal and mid LAD narrowings Circumflex 30% proximal narrowing Right Coronary Dominant vessel with 40% proximal and 50% mid vessel narrowing Left Ventriculography The left ventricle is normal in size with normal contractility. The left ventricular ejection fraction is estimated to be 65%. Left ventricular wall motion abnormalities are not present. There is no mitral insufficiency. Hemodynamics The aortic pressure is 110/75 mmHg with a mean of 91 mmHg. The left ventricular pressure is 120/7 mmHg with a mean of mmHg. The left ventricular end diastolic pressure is 14 mmHg. Conclusion #1 Modest coronary artery disease characterized by the following: A 30% proximal and mid LAD narrowings B 30% proximal circumflex narrowing C dominant right coronary artery with 40% proximal 50% mid vessel narrowing #2 normal left ventricular systolic function, estimate ejection fraction being 65% #3 normal left-sided hemodynamic study. Recommendations Cardiac [place] [address] CARDIAC CATH REPORT Name: RODNEY AYON Room: [address]#: [id number] Admission: 07/18/18 Attend Phys: Jennifer Ellis Discharge: 07/19/18 Date of : 70 Report #: [id number] Diagnostic Cath Approved by: Handy Batista MD Date/Time: 07/22/2018 14:38:34 <ELECTRONICALLY SIGNED> By: Handy Batista MD, FACC 07/22/18 1439 1439 1439Handy Batista MD, FACC /INF
== END 2018-07-19 17:39 | disposition home or self-care (01) | DRG 286 ==
LOC: M.ERS 15:33 → M.2W 16:37 → M.TBA-ER 16:37 → M.2W 18:38
PROVIDERS: Family Medicine; Registered Nurse; ADMIT Internal Medicine
PROC: B2111ZZ Fluoroscopy of Multiple Coronary Arteries using Low Osmolar Contrast (ICD-10-PCS; principal; 2018-07-19)
PROC: 4A023N7 Measurement of Cardiac Sampling and Pressure, Left Heart, Percutaneous Approach (ICD-10-PCS; principal; 2018-07-19)
PROC: B2151ZZ Fluoroscopy of Left Heart using Low Osmolar Contrast (ICD-10-PCS; principal; 2018-07-19)
DX: I20.0 Unstable angina (principal); R65.11 Systemic inflammatory response syndrome (SIRS) of non-infectious origin with acute organ dysfunction; N39.0 Urinary tract infection, site not specified; N17.9 Acute kidney failure, unspecified; E11.40 Type 2 diabetes mellitus with diabetic neuropathy, unspecified; N18.3 Chronic kidney disease, stage 3 (moderate); I12.9 Hypertensive chronic kidney disease with stage 1 through stage 4 chronic kidney disease, or unspecified chronic kidney disease; M79.7 Fibromyalgia; G47.30 Sleep apnea, unspecified; E11.51 Type 2 diabetes mellitus with diabetic peripheral angiopathy without gangrene; E78.5 Hyperlipidemia, unspecified; F17.210 Nicotine dependence, cigarettes, uncomplicated; Z85.51 Personal history of malignant neoplasm of bladder; Z92.21 Personal history of antineoplastic chemotherapy; Z71.6 Tobacco abuse counseling; Z95.820 Peripheral vascular angioplasty status with implants and grafts; Z79.02 Long term (current) use of antithrombotics/antiplatelets; Z79.84 Long term (current) use of oral hypoglycemic drugs; Z79.899 Other long term (current) drug therapy; Z91.041 Radiographic dye allergy status; Z82.49 Family history of ischemic heart disease and other diseases of the circulatory system; Z82.3 Family history of stroke

== ENCOUNTER → 2018-07-18 | Outpatient (CLI) | payer MEDICARE, OTHER ==
[~2018-07-18] MED LIST changes: +ATORVASTATIN CA40 MG PO
[2018-07-18 10:02] LABS: ABSOLUTE BASOPHILS 0.1 thou/uL (0.0-0.2); ABSOLUTE EOSINOPHILS 0.2 thou/uL (0.0-0.7); ABSOLUTE LYMPHOCYTES 2.3 thou/uL (0.8-5.3); ABSOLUTE MONOCYTES 0.9 thou/uL (0.0-1.2); ABSOLUTE NEUTROPHILS 11.2 thou/uL (1.6-8.1); BASOPHILS 0.4 %; EOSINOPHILS 1.5 %; HEMATOCRIT 41.7 % (42.0-52.0); HEMOGLOBIN 14.1 gm/dL (14.0-18.0); LYMPHOCYTES 15.4 %; MCH 29.9 pg (26.0-34.0); MCHC 33.9 g/dL (28.0-37.0); MCV 88.2 fL (80.0-100.0); MONOCYTES 6.1 %; MPV 6.8 fl. (7.2-11.1); NUCLEATED RBCS 0 /100WBC; PLATELET COUNT* 334 thou/uL (150-400); POLYS 76.6 %; RBC 4.72 mil/uL (4.50-6.00); RDW-CV 15.1 % (10.5-14.5); WBC 14.7 thou/uL (4.0-11.0)
[2018-07-18 10:19] LABS: ALBUMIN 4.1 g/dL (3.4-5.0); CALCIUM 10.4 mg/dL (8.5-10.1); CREATININE 1.5 mg/dL (0.6-1.3); POTASSIUM 3.9 mmol/L (3.5-5.1); TOTAL BILIRUBIN 0.3 mg/dL (<0.1-1.0); TOTAL PROTEIN 7.9 g/dL (6.4-8.2)
== END ==
LOC: M.RAD 09:38
PROVIDERS: Internal Medicine
DX: E11.9 Type 2 diabetes mellitus without complications (principal); M54.41 Lumbago with sciatica, right side; M54.42 Lumbago with sciatica, left side; G89.29 Other chronic pain; C67.3 Malignant neoplasm of anterior wall of bladder; G62.9 Polyneuropathy, unspecified; F32.5 Major depressive disorder, single episode, in full remission; Z85.51 Personal history of malignant neoplasm of bladder; Z79.4 Long term (current) use of insulin

== ENCOUNTER → 2018-10-02 | Outpatient (CLI) | payer MEDICARE, OTHER ==
[~2018-10-02] MED LIST changes: +ATORVASTATIN CA40 MG PO
[2018-10-02 17:54] LABS: ABSOLUTE BASOPHILS 0.1 thou/uL (0.0-0.2); ABSOLUTE EOSINOPHILS 0.3 thou/uL (0.0-0.7); ABSOLUTE LYMPHOCYTES 2.1 thou/uL (0.8-5.3); ABSOLUTE MONOCYTES 0.8 thou/uL (0.0-1.2); ABSOLUTE NEUTROPHILS 12.3 thou/uL (1.6-8.1); BASOPHILS 0.4 %; EOSINOPHILS 2.2 %; HEMATOCRIT 35.1 % (42.0-52.0); HEMOGLOBIN 11.6 gm/dL (14.0-18.0); LYMPHOCYTES 13.7 %; MCH 28.5 pg (26.0-34.0); MCHC 32.9 g/dL (28.0-37.0); MCV 86.5 fL (80.0-100.0); MONOCYTES 5.1 %; MPV 6.9 fl. (7.2-11.1); NUCLEATED RBCS 0 /100WBC; PLATELET COUNT* 448 thou/uL (150-400); POLYS 78.6 %; RBC 4.05 mil/uL (4.50-6.00); RDW-CV 13.7 % (10.5-14.5); WBC 15.7 thou/uL (4.0-11.0)
[2018-10-02 18:03] LABS: ALBUMIN 3.8 g/dL (3.4-5.0); CALCIUM 10.1 mg/dL (8.5-10.1); CREATININE 2.5 mg/dL (0.6-1.3); POTASSIUM 3.8 mmol/L (3.5-5.1); TOTAL BILIRUBIN 0.3 mg/dL (<0.1-1.0)
== END ==
LOC: M.CT 16:45
PROVIDERS: Internal Medicine
DX: N13.30 Unspecified hydronephrosis (principal); C67.9 Malignant neoplasm of bladder, unspecified; R16.1 Splenomegaly, not elsewhere classified; E11.42 Type 2 diabetes mellitus with diabetic polyneuropathy; G62.9 Polyneuropathy, unspecified; F32.5 Major depressive disorder, single episode, in full remission; I73.9 Peripheral vascular disease, unspecified; F17.200 Nicotine dependence, unspecified, uncomplicated; Z98.890 Other specified postprocedural states

== ENCOUNTER → 2018-10-24 | Outpatient (CLI) | payer MEDICARE, OTHER | LOC: M.WC 10-23 09:00 | DX: E11.621 Type 2 diabetes mellitus with foot ulcer (principal); I70.235 Atherosclerosis of native arteries of right leg with ulceration of other part of foot; L97.511 Non-pressure chronic ulcer of other part of right foot limited to breakdown of skin; E11.40 Type 2 diabetes mellitus with diabetic neuropathy, unspecified; M10.9 Gout, unspecified; G47.30 Sleep apnea, unspecified; F41.9 Anxiety disorder, unspecified; F17.200 Nicotine dependence, unspecified, uncomplicated; F32.9 Major depressive disorder, single episode, unspecified; Z85.51 Personal history of malignant neoplasm of bladder ==

== ENCOUNTER → 2018-11-01 | Outpatient (CLI) | payer MEDICARE, OTHER | LOC: M.WC 00:43 | DX: E11.621 Type 2 diabetes mellitus with foot ulcer (principal); I70.235 Atherosclerosis of native arteries of right leg with ulceration of other part of foot; L97.511 Non-pressure chronic ulcer of other part of right foot limited to breakdown of skin; E11.51 Type 2 diabetes mellitus with diabetic peripheral angiopathy without gangrene; E11.40 Type 2 diabetes mellitus with diabetic neuropathy, unspecified; G47.30 Sleep apnea, unspecified; M10.9 Gout, unspecified; F17.200 Nicotine dependence, unspecified, uncomplicated; F41.9 Anxiety disorder, unspecified; F32.9 Major depressive disorder, single episode, unspecified; Z85.51 Personal history of malignant neoplasm of bladder ==

== ENCOUNTER → 2018-11-02 | Outpatient (CLI) | payer MEDICARE, OTHER | LOC: M.ULTRA 12:44 | DX: S91.104D Unspecified open wound of right lesser toe(s) without damage to nail, subsequent encounter (principal); I77.1 Stricture of artery; X58.XXXD Exposure to other specified factors, subsequent encounter ==

== ENCOUNTER → 2018-11-08 | Outpatient (CLI) | payer MEDICARE, OTHER | LOC: M.WC 05:20 | DX: E11.621 Type 2 diabetes mellitus with foot ulcer (principal); I70.235 Atherosclerosis of native arteries of right leg with ulceration of other part of foot; L97.511 Non-pressure chronic ulcer of other part of right foot limited to breakdown of skin; E11.40 Type 2 diabetes mellitus with diabetic neuropathy, unspecified; E11.51 Type 2 diabetes mellitus with diabetic peripheral angiopathy without gangrene; G47.30 Sleep apnea, unspecified; M10.9 Gout, unspecified; F41.9 Anxiety disorder, unspecified; F17.200 Nicotine dependence, unspecified, uncomplicated; F32.9 Major depressive disorder, single episode, unspecified; Z85.51 Personal history of malignant neoplasm of bladder ==

== ENCOUNTER → 2018-11-15 | Outpatient (CLI) | payer MEDICARE, OTHER | LOC: M.WC 04:56 | DX: E11.621 Type 2 diabetes mellitus with foot ulcer (principal); I70.235 Atherosclerosis of native arteries of right leg with ulceration of other part of foot; L97.511 Non-pressure chronic ulcer of other part of right foot limited to breakdown of skin; E11.51 Type 2 diabetes mellitus with diabetic peripheral angiopathy without gangrene; E11.40 Type 2 diabetes mellitus with diabetic neuropathy, unspecified; G47.30 Sleep apnea, unspecified; M10.9 Gout, unspecified; F17.200 Nicotine dependence, unspecified, uncomplicated; F41.9 Anxiety disorder, unspecified; F32.9 Major depressive disorder, single episode, unspecified; Z85.51 Personal history of malignant neoplasm of bladder ==

== ENCOUNTER → 2018-11-22 | Outpatient (CLI) | payer MEDICARE, OTHER | LOC: M.WC 03:30 | DX: E11.621 Type 2 diabetes mellitus with foot ulcer (principal); L97.511 Non-pressure chronic ulcer of other part of right foot limited to breakdown of skin; I70.235 Atherosclerosis of native arteries of right leg with ulceration of other part of foot; E11.51 Type 2 diabetes mellitus with diabetic peripheral angiopathy without gangrene; E11.40 Type 2 diabetes mellitus with diabetic neuropathy, unspecified; G47.30 Sleep apnea, unspecified; M10.9 Gout, unspecified; F41.9 Anxiety disorder, unspecified; F32.9 Major depressive disorder, single episode, unspecified; F17.200 Nicotine dependence, unspecified, uncomplicated; Z85.51 Personal history of malignant neoplasm of bladder ==

== ENCOUNTER → 2018-11-29 | Outpatient (CLI) | payer MEDICARE, OTHER | LOC: M.WC 05:24 | DX: E11.621 Type 2 diabetes mellitus with foot ulcer (principal); I70.235 Atherosclerosis of native arteries of right leg with ulceration of other part of foot; L97.511 Non-pressure chronic ulcer of other part of right foot limited to breakdown of skin; E11.51 Type 2 diabetes mellitus with diabetic peripheral angiopathy without gangrene; E11.40 Type 2 diabetes mellitus with diabetic neuropathy, unspecified; G47.30 Sleep apnea, unspecified; M10.9 Gout, unspecified; F41.9 Anxiety disorder, unspecified; F17.200 Nicotine dependence, unspecified, uncomplicated; F32.9 Major depressive disorder, single episode, unspecified; Z85.51 Personal history of malignant neoplasm of bladder ==

== ENCOUNTER → 2018-12-05 | Outpatient (CLI) | payer MEDICARE, OTHER ==
[~2018-12-05] VITALS: Ht 188 cm; Wt 94.3 kg
[~2018-12-05] MED LIST changes: +PROLOPRIM100 MG PO
[2018-12-05 12:48] VITALS: BP 105/63
[2018-12-05 13:08] LABS: HEMATOCRIT 31.3 % (42.0-52.0); HEMOGLOBIN 10.2 gm/dL (14.0-18.0); MCH 26.6 pg (26.0-34.0); MCHC 32.5 g/dL (28.0-37.0); MCV 81.8 fL (80.0-100.0); MPV 6.5 fl. (7.2-11.1); RBC 3.83 mil/uL (4.50-6.00); RDW-CV 15.4 % (10.5-14.5)
[2018-12-05 13:20] LABS: APTT 29.8 Seconds (25.0-31.3); CALCIUM 9.8 mg/dL (8.5-10.1); CREATININE 2.2 mg/dL (0.6-1.3); INR 1.1; POTASSIUM 4.4 mmol/L (3.5-5.1); PROTIME 10.9 Seconds (9.20-11.50)
[2018-12-05 15:13] VITALS: BP 105/61
[2018-12-05 15:44] VITALS: BP 109/64
[2018-12-05 15:45] VITALS: BP 109/64
--- NOTE | 2018-12-06 08:05 | OP ---
[address] [address] OPERATIVE REPORT Name: GABORODNEY JAYDA Room: [facility].#: [id number] Admission: 12/05/18 Attend Phys: Derian Loaiza DO Discharge: Date of : 70 Report #: [id number] THIS REPORT FOR: //name// CC: Derian Marroquin DATE OF SERVICE: 12/05/2018 PREOPERATIVE DIAGNOSES: Critical right lower extremity ischemia with nonhealing ulcer. POSTOPERATIVE DIAGNOSES: Critical right lower extremity ischemia with nonhealing ulcer. OPERATIONS: 1. Ultrasound-guided access of left common femoral artery. 2. Aortoiliofemoral angiogram. 3. Third order selective right lower extremity angiogram. 4. Right superficial femoral artery, popliteal artery angioplasty and stent. SURGEON: Derian Loaiza DO FUNDRAISING MANAGER: OJLEEN Castro ANESTHESIA: Sedation with local. ESTIMATED BLOOD LOSS: 50 mL. FLUIDS: About 500 crystalloid. URINE OUTPUT: None. SPECIMENS: None. IMPLANTS: A 6 x 25 Viabahn and 6 x 10 Viabahn in the right SFA and popliteal segment. COMPLICATIONS: None. FINDINGS: Aortogram demonstrated patent infrarenal aorta, bilateral renal arteries without significant stenosis; patent right common iliac artery stent without significant stenosis; patent left common iliac, internal and external iliac arteries without significant stenosis; patent right external and internal iliac arteries without significant stenosis; patent right common femoral, deep femoral arteries without significant stenosis. 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 There were previously placed stents at the [address] [address] OPERATIVE REPORT Name: RODNEY AYON Room: [facility] Rhianna#: [id number] Admission: 12/05/18 Attend Phys: Derian Loaiza DO Discharge: Date of : 70 Report #: [id number] proximal portion of the SFA at the origin as well as in the distal portion. Again, these were chronically thrombosed. He had reconstitution of his above knee popliteal artery via profunda collaterals just distal to the adductor hiatus. Popliteal artery had moderately severe stenosis in the distal portion. He had 3-vessel runoff into the foot with really no significant stenosis. Following angioplasty and stenting of the right SFA, popliteal angioplasty had temple of inline flow with really no residual stenosis. CLINICAL HISTORY: The patient is a 48-year-old man with diabetes, peripheral vascular disease, nonhealing right fifth toe wound. He has had previous intervention and noninvasive testing demonstrated thrombosis of his SFA stents. I have recommended right lower extremity angiogram and intervention for a limb salvage. DESCRIPTION OF PROCEDURE: After informed consent was obtained, the patient was taken to the operating room and placed on the OR bed in the supine position. He was administered sedation by the nurse at my discretion. Bilateral groins were prepped and draped in usual sterile fashion. Full timeout was performed identifying correct patient and procedure. Next, using ultrasound guidance, left common femoral artery was identified, was accessed with micropuncture needle after anesthetizing skin and subcutaneous tissues with lidocaine anesthetic. These ultrasound images were preserved. Using Seldinger technique, a microwire and microsheath were placed, ultimately upsized to a 6-Indonesian sheath. I passed a flush catheter over the Bentson wire in the infrarenal aorta and performed the aortoiliofemoral angiogram with the findings noted above. Then, obtained up and over access across the bifurcation, positioned catheter, right common femoral artery, performed a selective right lower extremity angiogram with the findings noted above. I then administered 8000 units of intravenous heparin and exchanged out for a 6-Indonesian up and over sheath. Using a combination of Glidewire Advantage and seeker catheter, I was able to navigate across the thrombosed SFA stent occlusion. I was able to get intraluminal position within the distal popliteal artery. Followup imaging confirmed this intraluminal position. At this point, I then serially angioplastied the superficial femoral artery thrombosed stents as well as popliteal artery with a 5 mm Ultraverse balloon. I then exchanged out for an 0.018 wire and then deployed the 2 Viabahn stents from the large profunda collateral at the adductor hiatus to the SFA origin. I then post-dilated this with a 6 mm [place] balloon. Also, angioplastied the distal popliteal artery lesion with a 5 mm Ultraverse balloon. Following this, completion imaging demonstrated excellent result with temple of inline flow through the SFA and popliteal artery and a 3-vessel runoff into the foot. He had palpable dorsalis pedis pulse. Satisfied with the result, the wire and sheath were backed in left external iliac artery, performed an angiogram through the sheath to confirm access position. I then exchanged out for a short 6-Indonesian sheath and then deployed a 6-Indonesian Mynx closure device in standard fashion. I partially reversed the heparin with 30 mg of protamine. Manual pressure was held for 10 minutes. Once hemostasis was ensured, sterile [address] [address] OPERATIVE REPORT Name: RODNEY AYON Room: [facility].#: [id number] Admission: 12/05/18 Attend Phys: Derian Loaiza DO Discharge: Date of : 70 Report #: [id number] dressing was applied. All sponge, sharp instrument counts reported correct x 2. He tolerated the procedure well and transferred to recovery area in stable condition. <ELECTRONICALLY SIGNED> By: Derian Loaiza DO 12/06/18 0805 1505 1526Aneal Loaiza DO /nt
== END | disposition home or self-care (01) ==
LOC: M.INT 08:00
PROVIDERS: Surgery
DX: I70.238 Atherosclerosis of native arteries of right leg with ulceration of other part of lower leg (principal); L97.819 Non-pressure chronic ulcer of other part of right lower leg with unspecified severity; M62.261 Nontraumatic ischemic infarction of muscle, right lower leg; E11.51 Type 2 diabetes mellitus with diabetic peripheral angiopathy without gangrene; G62.9 Polyneuropathy, unspecified; M79.7 Fibromyalgia; Z85.51 Personal history of malignant neoplasm of bladder; Z82.49 Family history of ischemic heart disease and other diseases of the circulatory system; Z83.3 Family history of diabetes mellitus; Z87.891 Personal history of nicotine dependence; Z98.890 Other specified postprocedural states; Z79.01 Long term (current) use of anticoagulants; Z79.899 Other long term (current) drug therapy; Z82.3 Family history of stroke; Z91.041 Radiographic dye allergy status

== ENCOUNTER → 2018-12-06 | Outpatient (CLI) | payer MEDICARE, OTHER | LOC: M.WC 05:24 | DX: E11.621 Type 2 diabetes mellitus with foot ulcer (principal); I70.235 Atherosclerosis of native arteries of right leg with ulceration of other part of foot; L97.511 Non-pressure chronic ulcer of other part of right foot limited to breakdown of skin; E11.40 Type 2 diabetes mellitus with diabetic neuropathy, unspecified; E11.51 Type 2 diabetes mellitus with diabetic peripheral angiopathy without gangrene; G47.30 Sleep apnea, unspecified; M10.9 Gout, unspecified; F41.9 Anxiety disorder, unspecified; F17.200 Nicotine dependence, unspecified, uncomplicated; F32.9 Major depressive disorder, single episode, unspecified; Z85.51 Personal history of malignant neoplasm of bladder ==

== ENCOUNTER → 2018-12-13 | Outpatient (CLI) | payer MEDICARE, OTHER | LOC: M.WC 05:10 | DX: E11.621 Type 2 diabetes mellitus with foot ulcer (principal); I70.235 Atherosclerosis of native arteries of right leg with ulceration of other part of foot; L97.518 Non-pressure chronic ulcer of other part of right foot with other specified severity; E11.51 Type 2 diabetes mellitus with diabetic peripheral angiopathy without gangrene; E11.40 Type 2 diabetes mellitus with diabetic neuropathy, unspecified; G47.30 Sleep apnea, unspecified; M10.9 Gout, unspecified; F41.9 Anxiety disorder, unspecified; F32.9 Major depressive disorder, single episode, unspecified; F17.200 Nicotine dependence, unspecified, uncomplicated; Z85.51 Personal history of malignant neoplasm of bladder ==

== ENCOUNTER → 2019-01-23 | Outpatient (CLI) | payer MEDICARE, OTHER ==
[2019-01-23 15:19] LABS: ABSOLUTE BASOPHILS 0.1 thou/uL (0.0-0.2); ABSOLUTE EOSINOPHILS 0.4 thou/uL (0.0-0.7); ABSOLUTE LYMPHOCYTES 2.2 thou/uL (0.8-5.3); ABSOLUTE MONOCYTES 1.2 thou/uL (0.0-1.2); ABSOLUTE NEUTROPHILS 14.6 thou/uL (1.6-8.1); BASOPHILS 0.7 %; EOSINOPHILS 2.4 %; HEMATOCRIT 29.3 % (42.0-52.0); HEMOGLOBIN 9.5 gm/dL (14.0-18.0); LYMPHOCYTES 11.6 %; MCH 26.2 pg (26.0-34.0); MCHC 32.3 g/dL (28.0-37.0); MCV 81.1 fL (80.0-100.0); MONOCYTES 6.7 %; MPV 6.5 fl. (7.2-11.1); NUCLEATED RBCS 0 /100WBC; PLATELET COUNT* 486 thou/uL (150-400); POLYS 78.6 %; RBC 3.61 mil/uL (4.50-6.00); RDW-CV 15.4 % (10.5-14.5); WBC 18.6 thou/uL (4.0-11.0)
[2019-01-23 15:27] LABS: CALCIUM 9.6 mg/dL (8.5-10.1); CREATININE 2.1 mg/dL (0.6-1.3); POTASSIUM 3.6 mmol/L (3.5-5.1)
[2019-01-23 15:35] LABS: ALBUMIN 3.3 g/dL (3.4-5.0); TOTAL BILIRUBIN 0.3 mg/dL (<0.1-1.0); TOTAL PROTEIN 7.3 g/dL (6.4-8.2)
== END ==
LOC: M.CT 15:00
PROVIDERS: Internal Medicine
DX: J84.10 Pulmonary fibrosis, unspecified (principal); K57.30 Diverticulosis of large intestine without perforation or abscess without bleeding; R16.0 Hepatomegaly, not elsewhere classified; E11.42 Type 2 diabetes mellitus with diabetic polyneuropathy; I73.9 Peripheral vascular disease, unspecified; G62.9 Polyneuropathy, unspecified; C67.3 Malignant neoplasm of anterior wall of bladder; F32.5 Major depressive disorder, single episode, in full remission; G89.29 Other chronic pain; M51.36 Other intervertebral disc degeneration, lumbar region; M51.34 Other intervertebral disc degeneration, thoracic region

== ENCOUNTER → 2019-02-07 | Outpatient (CLI) | payer MEDICARE, OTHER | LOC: M.RAD 14:53 | DX: E11.42 Type 2 diabetes mellitus with diabetic polyneuropathy (principal); E11.51 Type 2 diabetes mellitus with diabetic peripheral angiopathy without gangrene; J02.9 Acute pharyngitis, unspecified; R06.02 Shortness of breath; F32.5 Major depressive disorder, single episode, in full remission ==